=== PATIENT | male | born 1930 | race Caucasian/White ===

== ENCOUNTER 2016-10-13 13:49 | Emergency (ER) | payer MEDICARE ==
[2016-10-13 15:23] VITALS: BP 109/61
[2016-10-13] MEDS ORDERED: Tetan/Diph/Pertus SYR(Tdap)* 0.5 ML SYR(BOOSTRIX) use SYR IM ONE (15:27)
--- NOTE | 2016-10-13 15:35 | UC ---
Skin Complaint HPI - HPI Summary HPI Summary: Patient cut self with rehana razor blade and is not UTD on tetanus. bleeding is well controled and cut is sealed, no sign of problems. - History of Current Complaint Chief Complaint: UCLaceration Time Seen by Provider: 10/13/16 15:20 Stated Complaint: FINGER LACERATION Hx Obtained From: Patient Onset/Duration: Sudden Onset, Lasting Hours Skin Exposure Onset/Duration: Hours Ago Timing: Constant Onset Severity: Mild Current Severity: Mild Pain Intensity: 1 Pain Scale Used: 0-10 Numeric Location: Discrete, Hand (Left) Aggravating: Nothing Alleviating: Nothing - Allergy/Home Medications Allergies/Adverse Reactions: Allergies Allergy/AdvReac Type Severity Reaction Status Date / Time No Known Allergies Allergy Verified 07/14/16 09:06 Review of Systems Constitutional: Negative Skin: Other - cut on left thumb and index finger Eyes: Negative ENT: Negative Respiratory: Negative Cardiovascular: Negative Gastrointestinal: Negative Genitourinary: Negative Motor: Negative Neurovascular: Negative Musculoskeletal: Negative Neurological: Negative Psychological: Negative All Other Systems Reviewed And Are Negative: Yes PMH/Surg Hx/FS Hx/Imm Hx Previously Healthy: Yes 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 ear operation 25 years ago - Family History Known Family History: Positive: Hypertension - Social History Alcohol Use: None Substance Use Type: None Smoking Status (MU): Never Smoked Tobacco Physical Exam Triage Information Reviewed: Yes Appearance: Well-Appearing, Well-Nourished, Pain Distress Vital Signs: Initial Vital Signs Temp 97.5 F 10/13/16 15:19 Pulse 64 10/13/16 15:19 Resp 18 10/13/16 15:19 BP 109/61 10/13/16 15:19 Pulse Ox 100 10/13/16 15:19 Vital Signs Reviewed: Yes Eye Exam: Normal Eyes: Positive: Conjunctiva Clear ENT Exam: Normal ENT: Positive: Normal ENT inspection, Hearing grossly normal, TMs normal Dental Exam: Normal Neck exam: Normal Neck: Positive: Supple, Nontender, No Lymphadenopathy Respiratory Exam: Normal Respiratory: Positive: Chest non-tender, Lungs clear, Normal breath sounds Cardiovascular Exam: Normal Cardiovascular: Positive: RRR, No Murmur, Pulses Normal Abdominal Exam: Normal Abdomen Description: Positive: Nontender, No Organomegaly, Soft Bowel Sounds: Positive: Present Musculoskeletal Exam: Normal Musculoskeletal: Positive: Strength Intact, ROM Intact, No Edema Neurological Exam: Normal Neurological: Positive: Alert, Muscle Tone Normal Psychological Exam: Normal Skin: Positive: Other - 2 small cuts, not currently bleeding Course/Dx - Course Course Of Treatment: hx obtained, exam performed, tetanus administered by nurse. - Differential Diagnoses - Skin Complaint Differential Diagnoses: Other - cut with metal - Diagnoses Provider Diagnoses: tetanus administration. 2 cuts, small Discharge - Discharge Plan Condition: Stable Disposition: HOME Patient Education Materials: Diphtheria/Pertussis/Tetanus Vaccine (DTwP) (By injection) Additional Instructions: you received a tetanus shot today. your arm may be sore for the next few days, ibuprofen or ice aplied to injection site as needed.
== END 2016-10-13 16:01 | disposition home or self-care (01) ==
LOC: UCEAST 13:49
DX: S61.012A Laceration without foreign body of left thumb without damage to nail, initial encounter (principal); S61.211A Laceration without foreign body of left index finger without damage to nail, initial encounter; W45.8XXA Other foreign body or object entering through skin, initial encounter; Y93.9 Activity, unspecified; Y92.9 Unspecified place or not applicable; Z23 Encounter for immunization
CPT/HCPCS: 90471; 90715; 99211; G0463

== ENCOUNTER 2017-02-15 15:06 | Emergency (ER) | payer MEDICARE ==
--- NOTE | 2017-02-15 15:44 | UC ---
Dizzy HPI HPI Summary: The patient comes in today for: 1. Lightheadedness (near syncope): Onset: This morning at 10 AM. Palliative/provocative: Sitting and laying down helped his sensation. Quality: Near syncope Region: [place] Severity: 0/10 pain. Time: Constant. Associated symptoms: Event: He was at home at a desk and doing computer work. 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 He sat down for about 10 minutes. This helped. After 10 minutes he was taken home by his son where he laid down. This laying down was associated with feeling 90% better. He laid down for about 2 hours. At that time, he got up and went to the kitchen. The lightheadedness did not get worse when he got up to go to the kitchen to have applesauce and tea. After this, he went back to the recliner. Eating did not affect his lightheadedness. After in the recliner, he stayed the same. He was there until he came to see us. Numbness/weakness/heaviness of arms or legs: None. Previous disease: None. Hx strokes or TIA: None. Heart disease: None. * - History Of Current Complaint Chief Complaint: UCDizziness Stated Complaint: LIGHT-HEADED Time Seen by Provider: 02/15/17 15:37 Hx Obtained From: Patient - Allergies/Home Medications Allergies/Adverse Reactions: Allergies Allergy/AdvReac Type Severity Reaction Status Date / Time No Known Allergies Allergy Verified 07/14/16 09:06 Home Medications: Home Medications Betaxolol-S 0.25%* [Betoptic-S 0.25%*] 1 drop BOTH EYES BID 02/15/17 [History Confirmed 02/15/17] PMH/Surg Hx/FS Hx/Imm Hx Previously Healthy: No - BPH, glaucoma Cardiovascular History: Hypertension - Surgical History Surgical History: Yes Surgery Procedure, Year, and Place: BACK OPERATION 2009. ear operation 25 years ago - Family History Known Family History: Positive: Hypertension, Diabetes - Social History Occupation: Employed Full-time Alcohol Use: None Substance Use Type: None Smoking Status (MU): Never Smoked Tobacco Review of Systems Constitutional: Negative Skin: Negative Eyes: Negative ENT: Negative Respiratory: Negative Cardiovascular: Negative Gastrointestinal: Negative Genitourinary: Negative All Other Systems Reviewed And Are Negative: Yes Physical Exam Triage Information Reviewed: Yes Appearance: Well-Appearing, No Pain Distress, Well-Nourished, Other: - He was slow in his cognition. Sometimes, I would have to repeat questions or commands during the exam. He had a mask facies and there was a lower lip tremor and a pill-rolling tremor of the right hand. He took small steps when walking--but no severe shuffling gait. Vital Signs: Initial Vital Signs Temp 98.1 F 02/15/17 15:11 Pulse 60 02/15/17 15:11 Resp 18 02/15/17 15:11 BP 147/79 02/15/17 15:11 Pulse Ox 100 02/15/17 15:11 Vital Signs Reviewed: Yes Eyes: Positive: Conjunctiva Clear. Negative: Discharge ENT: Positive: Hearing grossly normal. Negative: Pharyngeal erythema, Nasal congestion, Nasal drainage, TM bulging, TM dull, TM red, Tonsillar swelling, Tonsillar exudate Dental: Negative: Gross Decay/Caries @, Dental Fracture @ Neck: Positive: Supple, Nontender, No Lymphadenopathy, Other: - No carotid arteries. His range of motion is ax expected for an 86-year old male.. Negative : Nuchal Rigidity Respiratory: Positive: Lungs clear, No respiratory distress, No accessory muscle use. Negative: Crackles, Wheezing Cardiovascular: Positive: RRR, No Murmur Abdomen Description: Positive: Nontender, No Organomegaly, Soft. Negative: Distended, Guarding Musculoskeletal: Positive: Strength Intact, ROM Intact, No Edema Neurological: Positive: Alert, Other: - He had slight cogwheeling rigidity with putting his upper extremities through a range of motion. Neurologic exam: Inspection: no fasciculations, but he has tremors of his lower lip and his right hand (pill-rolling). Cranial nerves (II-XII): intact Muscular tone: Mild cogwheeling of the upper extremities. Reflexes: Biceps: 2+/2 x 2 Triceps : 2+/2 x 2 Brachioradialis: 2+/2 x 2 Patellar: 2+/2 x 2 Achilles: 2+/2 x 2 Coordination: Upper extremity: Alternating patting of thighs, alternating fingertips to thumb, index finger tip to nose--all normal, though slow. Lower extremity: Heel along alvarez--normal. Strength: Upper extremity: appropriate for age and symmetrical Lower extremity: appropriate for age and symmetrical Gait: Regular: smaller steps, but not classic shuffling gait or retropulsion. Heel to toe: He was unstead with his tandem gait. Rhomberg: Normal. Sensation: No complaint of numbness. Psychological: Positive: Normal Response To Family, Age Appropriate Behavior, Consolable Skin: Negative: rashes, breakdown Dizzy Course/Dx - Course Course Of Treatment: Patient was told that because he is still feeling like he is going to faint which is a new symptom, and with his complaint of having more difficulty with walking, I am recommending that he go to the ER for more evaluation. He agrees to do that going by private car. - Differential Dx/Diagnosis Provider Diagnoses: Near-syncope. New onset difficulty with ambulation. Discharge - Discharge Plan Condition: Stable Disposition: AGAINST MEDICAL ADVICE Additional Instructions: Patient and his state that he is going to the ER via private car.
[2017-02-15 16:47] VITALS: BP 170/95
== END 2017-02-15 16:30 | disposition left against medical advice (07) ==
LOC: UCEAST 15:06
DX: R55 Syncope and collapse (principal); R26.2 Difficulty in walking, not elsewhere classified; I10 Essential (primary) hypertension
CPT/HCPCS: 93005; 99212; G0463

== ENCOUNTER 2017-02-15 17:12 | Emergency (ER) | payer MEDICARE ==
[2017-02-15] MEDS ORDERED: NS 0.9% 1000 ML* 1,000 ML IV ONE (20:15)
[2017-02-15 20:24] LABS: Hematocrit 39 % (42-52); Hemoglobin 12.8 g/dl (14.0-18.0); Mean Corpuscular HGB Conc 33 g/dl (31-36); Mean Corpuscular Hemoglobin 30 pg (27-31); Mean Corpuscular Volume 91 fL (80-94); Mean Platelet Volume 9 um3 (7.4-10.4); Red Blood Count 4.23 10^6/ul (4.0-5.4); Red Cell Distribution Width 13 % (10.5-15); White Blood Count 8.4 10^3/ul (3.5-10.8)
[2017-02-15 20:35] LABS: Calcium 9.2 mg/dL (8.6-10.3); EGFR African American 59.3 (>60); EGFR Non-African American 46.1 (>60); Globulin 2.9 g/dL (2-4); Magnesium 2.1 mg/dL (1.9-2.7); Potassium 4.1 mmol/L (3.5-5.0); Total Protein 6.9 g/dL (6.4-8.9)
[2017-02-15 20:50] LABS: TSH (Thyroid Stimulating Horm) 3.94 mcIU/mL (0.34-5.60)
--- NOTE | 2017-02-15 20:56 | ED ---
I, Oh,Magdiel, scribed for Dakota Acevedo MD on 02/15/17 at 2016 . Dizziness - HPI Summary HPI Summary: This 86 y/o male presents to ED for acute lightheaded dizziness since today AM. He felt fine earlier this morning before going to work. Pt was at work at time of onset. He returned home and lied down, but decided to visit ED today when dizziness persists. Positive near syncope and general weakness. Negative fever, chills, n/v, pain, or SOB. Pt admits to not keeping himself well hydrated during hot weather today. PMHx includes HTN and glaucoma. - History Of Current Complaint Chief Complaint: EDWeakness Stated Complaint: WEAKNESS,NEAR SYNCOPE Time Seen by Provider: 02/15/17 19:42 Hx Obtained From: Patient, Medical Records Onset/Duration: Still Present Timing: Constant Character: Lightheaded Associated Signs And Symptoms: Negative: Nausea, Vomiting, SOB, Fever, Chills - Allergies/Home Medications Allergies/Adverse Reactions: Allergies Allergy/AdvReac Type Severity Reaction Status Date / Time No Known Allergies Allergy Verified 07/14/16 09:06 PMH/Surg Hx/FS Hx/Imm Hx Endocrine/Hematology History: Reports: Hx Thyroid Disease - thyroid doxicosis Cardiovascular History: Reports: Hx Hypertension Musculoskeletal History: Reports: Hx Tendonitis - right side arm/shoulder Sensory History: Reports: Hx Cataracts - surgery, Hx Contacts or Glasses, Hx Glaucoma, Hx Hearing Aid - bilat Opthamlomology History: Reports: Hx Cataracts - surgery, Hx Contacts or Glasses , Hx Glaucoma - Surgical History Surgery Procedure, Year, and Place: BACK OPERATION 2009. ear operation 25 years ago Hx Anesthesia Reactions: No Infectious Disease History: No Infectious Disease History: Denies: Traveled Outside the [place] in Last 30 Days - Family History Known Family History: Positive: Hypertension, Diabetes - Social History Alcohol Use: None Hx Substance Use: No Substance Use Type: Reports: None Hx Tobacco Use: No Smoking Status (MU): Never Smoked Tobacco Review of Systems Negative: Fever, Chills Negative: Shortness Of Breath Negative: Vomiting, Nausea Neurological: Other - Positive for lightheaded dizzness Positive: Weakness - general weakness, Syncope - near All Other Systems Reviewed And Are Negative: Yes Physical Exam Triage Information Reviewed: Yes Vital Signs On Initial Exam: Initial Vitals Temp Pulse Resp BP Pulse Ox 97.9 F 54 20 162/86 100 02/15/17 17:14 02/15/17 17:14 02/15/17 17:14 02/15/17 17:14 02/15/17 17:14 Vital Signs Reviewed: Yes Appearance: Positive: Well-Appearing, Well-Nourished Skin: Positive: Warm Head/Face: Positive: Normal Head/Face Inspection Eyes: Positive: EOMI, AMI ENT: Positive: Hearing grossly normal Neck: Positive: Supple, Nontender Respiratory/Lung Sounds: Positive: Clear to Auscultation, Breath Sounds Present Cardiovascular: Positive: RRR. Negative: Murmur Abdomen Description: Positive: Nontender, Soft Bowel Sounds: Positive: Present Musculoskeletal: Positive: Strength/ROM Intact Neurological: Positive: Sensory/Motor Intact, Alert, Oriented to Person Place, Time, Normal Gait Psychiatric: Positive: Affect/Mood Appropriate - Roger Coma Scale Coma Scale Total: 15 Diagnostics - Vital Signs Vital Signs Temp Pulse Resp BP Pulse Ox 02/15/17 18:34 97.3 F 64 20 147/90 100 02/15/17 17:18 97.9 F 59 20 162/86 100 02/15/17 17:14 97.9 F 54 20 162/86 100 - Laboratory Lab Results: Lab Results 02/15/17 02/15/17 02/15/17 Range/Units 19:46 19:46 19:46 WBC 8.4 (3.5-10.8) 10^3/ul RBC 4.23 (4.0-5.4) 10^6/ul Hgb 12.8 L (14.0-18.0) g/dl Hct 39 L (42-52) % MCV 91 (80-94) fL MCH 30 (27-31) pg MCHC 33 (31-36) g/dl RDW 13 (10.5-15) % Plt Count 188 (150-450) 10^3/ul MPV 9 (7.4-10.4) um3 Neut % (Auto) 66.7 (38-83) % Lymph % (Auto) 23.5 L (25-47) % [place] % (Auto) 8.7 (1-9) % Eos % (Auto) 0.4 (0-6) % Baso % (Auto) 0.7 (0-2) % Absolute Neuts (auto) 5.6 (1.5-7.7) 10^3/ul Absolute Lymphs (auto) 2.0 (1.0-4.8) 10^3/ul Absolute Monos (auto) 0.7 (0-0.8) 10^3/ul Absolute Eos (auto) 0 (0-0.6) 10^3/ul Absolute Basos (auto) 0.1 (0-0.2) 10^3/ul Absolute Nucleated RBC 0.01 10^3/ul Nucleated RBC % 0.1 Sodium 130 L (133-145) mmol/L Potassium 4.1 (3.5-5.0) mmol/L Chloride 97 L (101-111) mmol/L Carbon Dioxide 27 (22-32) mmol/L Anion Gap 6 (2-11) mmol/L BUN 29 H (6-24) mg/dL Creatinine 1.45 H (0.67-1.17) mg/dL Est GFR ( Amer) 59.3 (>60) Est GFR (Non-Af Amer) 46.1 (>60) BUN/Creatinine Ratio 20.0 (8-20) Glucose 103 H (70-100) mg/dL Lactic Acid 0.8 (0.5-2.0) mmol/L Calcium 9.2 (8.6-10.3) mg/dL Magnesium 2.1 (1.9-2.7) mg/dL Total Bilirubin 1.00 (0.2-1.0) mg/dL AST 15 (13-39) U/L ALT 16 (7-52) U/L Alkaline Phosphatase 55 (34-104) U/L Troponin I 0.00 (<0.04) ng/mL Total Protein 6.9 (6.4-8.9) g/dL Albumin 4.0 (3.2-5.2) g/dL Globulin 2.9 (2-4) g/dL Albumin/Globulin Ratio 1.4 (1-3) TSH 3.94 (0.34-5.60) mcIU/mL Result Diagrams: 02/15/17 19:46 02/15/17 19:46 Lab Statement: Any lab studies that have been ordered have been reviewed, and results considered in the medical decision making process. - EKG 1723 Cardiac Rate: NL - NSR at 62 bpm EKG Rhythm: Sinus Rhythm Re-Evaluation - Re-Evaluation First Eval Change: Improved Dizzy Course/Dx - Course Assessment/Plan: This 86 y/o male presents to ED for general weakness and lightheaded dizziness. Pt denies any focal weakness, fever, chills, n/v. Pt admits to not drinking and thus failing to keep himself hydrated today in hot weather. Bloodwork is wnl except elevated creatinine of 1.45 and anemia with Hgb of 12.8. EMR indicates that pt's creatinine was elevated to 1.24 on October 2015. Pt was given IV NS and was discharged home with outpatient f/u plan. - Diagnoses Provider Diagnoses: Dizziness Discharge - Discharge Plan Condition: Stable Disposition: HOME Patient Education Materials: Weakness (ED) Referrals: Babar Frankel MD [Primary Care Provider] - 2 Days The documentation as recorded by the Krzysztof silva Soohyun accurately reflects the service I personally performed and the decisions made by me, Dakota Acevedo MD.
[2017-02-15 21:12] VITALS: BP 142/61
== END 2017-02-15 21:11 | disposition home or self-care (01) ==
LOC: ED 17:12
DX: R42 Dizziness and giddiness (principal)
CPT/HCPCS: 36415; 80053; 83605; 83735; 84443; 84484; 85025; 93005; 96360; 99283

== ENCOUNTER 2017-05-06 02:36 | Emergency (ER) | payer MEDICARE ==
[2017-05-06] MEDS ORDERED: Mineral Oil ENEMA* 1 BOTTLE PR ONE (05:32)
[2017-05-06 05:53] LABS: Albumin 3.6 g/dL (3.2-5.2); BUN/Creatinine Ratio 15.7 (8-20); EGFR African American 55.6 (>60); EGFR Non-African American 43.3 (>60); Globulin 2.8 g/dL (2-4); Potassium 3.8 mmol/L (3.5-5.0); Total Bilirubin 0.8 mg/dL (0.2-1.0); Total Protein 6.4 g/dL (6.4-8.9)
[2017-05-06 06:03] LABS: Urine Bacteria Absent (Absent); Urine Bilirubin Negative (Negative); Urine Glucose Negative (Negative); Urine Nitrite Negative (Negative)
[2017-05-06] MEDS ORDERED: Magnesium CITRATE* 300 ML BTL PO ONE (06:25)
--- NOTE | 2017-05-06 06:34 | ED ---
Rene Haley Rebecca, scribed for Devan Islas on 05/06/17 at 0430 . GI/ HPI - HPI Summary HPI Summary: Pt is an 87 y/o M who presents to ED c/o constipation and difficulty urinating for 5 days. Sx aggravated and alleviated by nothing.Denies abdominal pain, N/V, fever. Reports that he was seen by Dr. Guevara 5 days ago and that she told him his bladder was filled due to his inability to urinate. - History of Current Complaint Chief Complaint: EDUrogenitalProblems Time Seen by Provider: 05/06/17 02:39 Stated Complaint: CONSTIPATION/UNABLE TO URINATE Hx Obtained From: Patient Onset/Duration: Started Days Ago - 5 days, Still Present Current Severity: None Pain Intensity: 0 Location of Pain: None Associated Signs and Symptoms: Positive: Constipation. Negative: Nausea, Vomiting, Fever Aggravating Factor(s): Nothing Alleviating Factor(s): Nothing - Allergy/Home Medications Allergies/Adverse Reactions: Allergies Allergy/AdvReac Type Severity Reaction Status Date / Time No Known Allergies Allergy Verified 05/06/17 02:41 PMH/Surg Hx/FS Hx/Imm Hx Endocrine/Hematology History: Reports: Hx Thyroid Disease - thyroid doxicosis Cardiovascular History: Reports: Hx Hypertension Musculoskeletal History: Reports: Hx Tendonitis - right side arm/shoulder Sensory History: Reports: Hx Cataracts - surgery, Hx Contacts or Glasses, Hx Glaucoma, Hx Hearing Aid - bilat Opthamlomology History: Reports: Hx Cataracts - surgery, Hx Contacts or Glasses , Hx Glaucoma - Surgical History Surgery Procedure, Year, and Place: BACK OPERATION 2009. ear operation 25 years ago Hx Anesthesia Reactions: No Infectious Disease History: No Infectious Disease History: Denies: Traveled Outside the [place] in Last 30 Days - Family History Known Family History: Positive: Hypertension, Diabetes - Social History Alcohol Use: None Hx Substance Use: No Substance Use Type: Reports: None Hx Tobacco Use: No Smoking Status (MU): Never Smoked Tobacco Review of Systems Negative: Fever Positive: Other - Constipation. Negative: Abdominal Pain, Vomiting, Nausea Positive: other - Difficulty urinating All Other Systems Reviewed And Are Negative: Yes Physical Exam - Summary Physical Exam Summary: Appearance: Well appearing, no pain distress Skin: warm, dry, reflects adequate perfusion Head/face: normal Eyes: EOMI, AMI ENT: normal Neck: supple, nontender Respiratory: CTA, breath sounds present Cardiovascular: RRR, pulses symmetrical Abdomen: mildly distended abdomen with no tenderness Bowel: present Musculoskeletal: normal, strength/ROM intact Neuro: normal, sensory motor intact, A&Ox3 Triage Information Reviewed: Yes Vital Signs On Initial Exam: Initial Vitals Temp Pulse Resp BP Pulse Ox 96.0 F 65 16 110/79 100 05/06/17 02:43 05/06/17 02:43 05/06/17 02:43 05/06/17 02:43 05/06/17 02:43 Vital Signs Reviewed: Yes Diagnostics - Vital Signs Vital Signs Temp Pulse Resp BP Pulse Ox 05/06/17 02:43 96.0 F 65 16 110/79 100 - Laboratory Result Diagrams: 05/06/17 05:15 Lab Statement: Any lab studies that have been ordered have been reviewed, and results considered in the medical decision making process. - Radiology KUB Xray Interpretation: Positive (See Comments) - Fecal impaction Radiology Interpretation Completed By: ED Physician Re-Evaluation - Re-Evaluation First Eval Re-Evaluation Time: 06:29 Comment: Discussed D/C plan and plan to send in Rx for the pt. GIGU Course/Dx - Course Assessment/Plan: Pt is an 87 y/o M who presents to ED c/o constipation and difficulty urinating for 5 days. Sx aggravated and alleviated by nothing.Denies abdominal pain, N/V, fever. Reports that he was seen by Dr. Guevara 5 days ago and that she told him his bladder was filled due to his inability to urinate. KUB reveals fecal impaction, as read by ED physician. Blood work and UA were done. Sodium of 129. In the ED course, pt received a fleet mineral oil enema. Pt will be D/C to home with Dx of urinary retention, constipation and hyponatremia wiht Rx for citrate of magnesia and a follow up with his PCP and urology. He understands and agrees. - Diagnoses Provider Diagnoses: Urine retention, Constipation, Hyponatremia Discharge - Discharge Plan Condition: Stable Disposition: HOME Prescriptions: Magnesium CITRATE* [Citrate of Magnesia*] 300 ml PO ONCE #3 btl Patient Education Materials: Urinary Retention in Men (ED), Constipation (ED), Hyponatremia (ED) Referrals: Babar Frankel MD [Primary Care Provider] - 3 Days Sadiq Guevara MD [Medical Doctor] - 3 Days The documentation as recorded by the Rene silva Rebecca accurately reflects the service I personally performed and the decisions made by Roshan ibrahim Emmanuel.
[2017-05-06 06:59] VITALS: BP 90/72
--- NOTE | 2017-05-06 08:24 | RAD ---
HISTORY: Constipation COMPARISONS: December 13, 2006 VIEWS: Frontal views of the abdomen. FINDINGS: BOWEL: There is a nonspecific bowel gas pattern, with nondilated small bowel gas noted. There is a large amount of stool within the colon. CALCULI: There are no abnormal calculi. BONES AND SOFT TISSUES: Degenerative changes are noted of the spine and hips OTHER FINDINGS: The lung bases are clear. There is no subphrenic gas. IMPRESSION: 1. NONSPECIFIC BOWEL GAS PATTERN. 2. LARGE AMOUNT OF STOOL THROUGHOUT THE COLON.
== END 2017-05-06 07:00 | disposition home or self-care (01) ==
LOC: ED 02:36
DX: K59.00 Constipation, unspecified (principal); R33.9 Retention of urine, unspecified; E87.1 Hypo-osmolality and hyponatremia; E07.9 Disorder of thyroid, unspecified; I10 Essential (primary) hypertension
CPT/HCPCS: 36415; 74000; 80053; 81003; 81015; 83690; 85610; 85730; 99283; A9270-GY